=== PATIENT | male | born 1950 | race Caucasian/White ===

== ENCOUNTER 2017-03-04 14:45 | Emergency (ER) | payer MEDICARE, OTHER ==
[2017-03-04 15:41] LABS: microscopic required? NO
[2017-03-04 16:12] LABS: BASOPHIL % 0.4 % (0-2); RED CELL DISTRIBUTION WIDTH 13.3 % (11.5-14.5)
[2017-03-04 16:13] LABS: urine erythrocyte NEGATIVE (NEGATIVE)
[2017-03-04 16:13] LABS: PLATELET COUNT 429 x10^3mcL (130-400)
[2017-03-04 16:25] LABS: CALCIUM 9.1 mg/dL (8.5-10.1); CARBON DIOXIDE 30.8 mmol/L (21-32); CHLORIDE SERUM 102 mmol/L (98-107); GFR1 > 60 mL/min; GLUCOSE SERUM 100 mg/dL (74-106); POTASSIUM SERUM 4.5 mmol/L (3.5-5.1); SODIUM SERUM 140 mmol/L (136-145)
[2017-03-04 16:29] LABS: ALKALINE PHOSPHATASE 88 U/L (46-116); ALT/SGPT 32 U/L (16-63); AST/SGOT 18 U/L (15-37); BILIRUBIN TOTAL 0.3 mg/dL (0.20-1.00); TOTAL PROTEIN, SERUM 7.8 g/dL (6.4-8.2)
[2017-03-04 16:30] LABS: ALBUMIN 3.1 g/dL (3.4-5.0)
[2017-03-04 17:32] VITALS: BP 118/65
== END 2017-03-04 17:32 | disposition home or self-care (01) ==
LOC: ED 14:45
PROVIDERS: Emergency Medicine
DX: M54.5 Low back pain (principal); R59.0 Localized enlarged lymph nodes; F17.200 Nicotine dependence, unspecified, uncomplicated; E11.9 Type 2 diabetes mellitus without complications; Z79.84 Long term (current) use of oral hypoglycemic drugs
CPT/HCPCS: J2270; Q0162